=== PATIENT | male | born 2000 | race Caucasian/White ===

== ENCOUNTER → 2024-08-07 | Day surgery (SDC) | payer BC ==
[~2024-08-07] MED LIST: LACTATED RINGER'S 1,000 ML ONE; METAMUCIL FIBE3.4 GM PO; METOCLOPRAMIDE HCL 10 MG/2ML VIAL ONE; MIDAZOLAM HCL 2 MG/2 ML VIAL ONE; PROPOFOL IV EMULSION 10 MG/ML 20 ML VIAL ONE; PROPOFOL IV EMULSION 50 ML IV ONE
[2024-08-07 09:40] VITALS: BP 111/75; PULSE 75; RESP 20; TEMP 97.9; O2SAT 98
[2024-08-07 11:23] LABS: CDIFF AG QUIK CHEK NEGATIVE (NEGATIVE)
[2024-08-07 11:24] LABS: CDIFF TOX QUIK CHEK NEGATIVE (NEGATIVE)
[2024-08-08 07:26] LABS: C-REACTIVE PROTEIN 4 mg/L (0-10)
[2024-08-12 15:13] LABS: IMMUNOGLOBULIN A 166 mg/dL (90-386)
[2024-08-12 15:25] LABS: TISSUE TRANSGLUTAMINASE IGA AB <2 U/mL (0-3)
== END | disposition home or self-care (01) ==
LOC: OR 06:28
PROVIDERS: ATTEND Internal Medicine Gastroenterology
DX: K63.5 Polyp of colon (principal); K62.89 Other specified diseases of anus and rectum; K64.8 Other hemorrhoids; K22.10 Ulcer of esophagus without bleeding; K44.9 Diaphragmatic hernia without obstruction or gangrene; K29.70 Gastritis, unspecified, without bleeding; F17.290 Nicotine dependence, other tobacco product, uncomplicated
CPT/HCPCS: 43239; 45380; 45385; 82784; 83516; 83630; 83993; 86140; 87045; 87177; 87324; 87328; 87449; J2250; J2470; J2704 ×2; J2765; J7121; 45378; 86256